=== PATIENT | male | born 1980 | race Caucasian/White ===

== ENCOUNTER 2022-05-01 07:14 | Observation (INO) | payer BC ==
[2022-05-01] MEDS ORDERED: Ondansetron PF 4 MG/2 ML Vial ONE (07:59)
[2022-05-01] MEDS ORDERED: Aspirin Chewable 81 MG TAB ONE (08:00)
[2022-05-01] MEDS ORDERED: Diazepam 10 MG/2 ML SYRINGE ONE (08:00)
[2022-05-01 08:21] LABS: #Eosinphils 0.1 10x3/uL (0.0-0.5); #Monocytes 0.7 10x3/uL (0.0-1.1); #Neutrophils 8.3 10x3/uL (1.5-8.4); %Basophils 0.1 % (0.0-2.0); %Eosinophils 0.7 % (0.0-6.0); %Lymphocytes 16.5 % (18.0-47.0); %Monocytes 6.4 % (0.0-10.0); %Neutrophils 75.8 % (40.0-75.0); Hemoglobin 16.8 g/dL (13.5-17.5); Mean Corpuscular HGB CONC 35.8 g/dL (32.0-36.0); Mean Corpuscular Hemoglobin 29.9 pg (27.0-33.0); Mean Corpuscular Volume 83.6 fl (81.2-95.1); Mean Platelet Volume 9.8 fl (7.4-10.4); Platelet Count 208 10x3/uL (150-450); RBC Distribution Width 13.2 % (11.5-14.5); Red Blood Cell (RBC) Count 5.61 10x6/uL (4.32-5.72)
[2022-05-01 08:35] LABS: ALT (SGPT) 38 U/L (8-55); AST (SGOT) 27 U/L (5-34); Albumin 4.7 g/dL (3.5-5.0); Alkaline Phosphatase 44 U/L (40-110); Anion Gap 15 mmol/L (10-20); BUN (Urea Nitrogen) 10 mg/dL (8.9-20.6); Bilirubin, Total 0.9 mg/dL (0.2-1.2); Calc. Creatinine Clearance 0 mL/min (70-130); Calcium 9.5 mg/dL (7.8-10.44); Carbon Dioxide 25 mmol/L (22-29); Chloride 104 mmol/L (98-107); Estimated GFR 111; Globulin 2.7 g/dL (2.4-3.5); Glucose 124 mg/dL (70-105); Protein, Total 7.4 g/dL (6.0-8.3); Sodium 140 mmol/L (136-145)
[2022-05-01] MEDS ORDERED: Calcium Carbonate 500 MG ChewTAB PO PRN (10:08)
[2022-05-01] MEDS ORDERED: Ondansetron ODT 4 MG TAB PO PRN (10:08)
[2022-05-01] MEDS ORDERED: Ondansetron PF 4 MG/2 ML Vial IVP PRN (10:08)
[2022-05-01] MEDS ORDERED: Acetaminophen 650 MG Suppository PR PRN (10:08)
[2022-05-01] MEDS ORDERED: Acetaminophen 325 MG TAB PO PRN (10:08)
[2022-05-01] MEDS ORDERED: Labetalol HCl 100 MG/20 ML VIAL SLOW IVP PRN (10:08)
[2022-05-01] MEDS ORDERED: hydrALAZINE 20 MG/ML VIAL SLOW IVP PRN (10:08)
[2022-05-01] MEDS ORDERED: Meclizine HCl 25 MG TAB ONE (10:58)
[2022-05-01] MEDS ORDERED: PROCHLORPERAZINE EDISYLATE IVPB PRN (14:38)
[2022-05-01] MEDS ORDERED: SODIUM CHLORIDE 0.9% IVPB PRN (14:38)
[2022-05-01] MEDS ORDERED: Senokot S 8.6-50 MG TAB PO PRN (14:39)
[2022-05-01] MEDS ORDERED: Moisturizing Cream (Eucerin) 113 GM JAR TOP PRN (14:39)
[2022-05-01] MEDS ORDERED: Artificial Tear Sol 15 ML BOT EA EYE PRN (14:39)
[2022-05-01] MEDS ORDERED: Loperamide HCl 2 MG CAP PO PRN ×2 (14:39)
[2022-05-01] MEDS ORDERED: Sodium Chloride 0.65% Nasal 44 ML BOT EA NARE PRN (14:39)
[2022-05-01] MEDS ORDERED: Ibuprofen 200 MG TAB PO PRN (14:39)
[2022-05-01] MEDS ORDERED: diphenhydrAMINE 50 MG/ML VIAL IVP PRN (14:39)
[2022-05-01] MEDS ORDERED: Bisacodyl 5 MG TAB PO PRN (14:39)
[2022-05-01] MEDS ORDERED: Fluticasone Propionate Nasal Spray 16 gm Bottle NASAL SCH (14:45)
[2022-05-01] MEDS ORDERED: predniSONE 20 MG TAB PO SCH ×2 (14:45→17:30)
[2022-05-01 16:37] VITALS: BMI 30.5
[2022-05-01] MEDS ORDERED: Dexamethasone 4 mg/ml Vial SLOW IVP SCH (17:00)
[2022-05-01] MEDS ORDERED: Magnesium 2 GM/50 ML(in water) 2 GM in Premix Bag 1 BAG IVPB SCH (17:00)
[2022-05-01] MEDS ORDERED: Enoxaparin Sodium 40 MG/0.4 ML SYRINGE SC SCH (17:00)
[2022-05-01] MEDS: Lactated Ringer's 1,000 ML IV SCH (17:28)
[2022-05-01] MEDS ORDERED: predniSONE 20 MG TAB PO ONE (17:30)
[2022-05-01] MEDS: Meclizine HCl 25 MG TAB PO PRN (18:54)
[2022-05-01] MEDS ORDERED: Melatonin 3 MG TAB PO SCH (21:00)
[2022-05-01] MEDS: Famotidine 20 MG TAB PO SCH (21:25)
[2022-05-02] MEDS: Lactated Ringer's 1,000 ML IV SCH (05:49)
[2022-05-02] MEDS ORDERED: Aspirin 81 mg Enteric Coated Tablet PO SCH (09:00)
[2022-05-02] MEDS ORDERED: predniSONE 20 MG TAB PO SCH (09:00)
[2022-05-02] MEDS ORDERED: Atorvastatin Calcium 40 MG TAB PO SCH (09:00)
[2022-05-02] MEDS ORDERED: Enoxaparin Sodium 40 MG/0.4 ML SYRINGE SC SCH (09:00)
[2022-05-02] MEDS: Famotidine 20 MG TAB PO SCH (09:46)
[2022-05-02] MEDS: Meclizine HCl 25 MG TAB PO PRN (10:00)
[2022-05-02 21:22] VITALS: BP 150/80; TEMP 98.2
[2022-05-06] MEDS ORDERED: predniSONE 20 MG TAB PO SCH (09:00)
[2022-05-07] MEDS ORDERED: predniSONE 20 MG TAB PO SCH (09:00)
[2022-05-08] MEDS ORDERED: predniSONE 20 MG TAB PO SCH (09:00)
[2022-05-09] MEDS ORDERED: predniSONE 10 MG TAB PO SCH (09:00)
[2022-05-10] MEDS ORDERED: predniSONE 5 MG TAB PO SCH (09:00)
== END 2022-05-02 17:55 | disposition home or self-care (01) ==
LOC: CSHERS 07:14 → CSHTELE 09:55 → UNDOADMOB 15:33
PROVIDERS: ADMIT Family Medicine; ATTEND Hospitalist
DX: R42 Dizziness and giddiness (principal); R11.2 Nausea with vomiting, unspecified; J06.9 Acute upper respiratory infection, unspecified; F41.9 Anxiety disorder, unspecified; E78.5 Hyperlipidemia, unspecified; R26.81 Unsteadiness on feet; Z79.899 Other long term (current) drug therapy
CPT/HCPCS: 36415; 70551; 80053; 84443; 84484; 85025; 93005; 96361; 96372; 96374; 96375; 96376; G0378; J1650; J2405; J3360; J3475; J7120; J7512; Q0162